=== PATIENT | female | born 1980 | race Hispanic/Latino ===

== ENCOUNTER 2017-04-16 14:02 | Emergency (ER) | payer BC ==
[2017-04-16 14:14] VITALS: RESP 18; TEMP 97.6; O2SAT 98
[2017-04-16] MEDS ORDERED: Lidocaine 2% Inj (20ml) INFIL ONE (14:43)
[2017-04-16] MEDS ORDERED: Bacitracin 500 Units/gm Oint Foilpak UD TOP ONE (14:43)
[2017-04-16] MEDS ORDERED: Lidocaine 2% Inj (20ml) ONE (14:46)
[2017-04-16] MEDS ORDERED: Bacitracin 500 Units/gm Oint Foilpak UD ONE (15:23)
--- NOTE | 2017-04-16 15:48 | C.PDOC ---
History Of Present Illness 04/16/2017 Xochitl Aquino is a 36 y/o female who presents to the ED complaining of a laceration on her fourth left finger. Patient reports she was cutting shrubs with hedge trimmers when she cut her 4th finger. Patient notes her Tetanus shot is not up to date. Patient denies weakness, numbness or other complaints. Time Seen by Provider: 04/16/17 14:18 Chief Complaint (Nursing): Abnormal Skin Integrity History Per: Patient History/Exam Limitations: no limitations Onset/Duration Of Symptoms: Hrs (prior to arrival) Current Symptoms Are (Timing): Still Present Location Of Injury: Left: Hand (4th finger laceration ) Past Medical History Reviewed: Historical Data, Nursing Documentation, Vital Signs Vital Signs: Last Vital Signs Temp 97.6 F 04/16/17 14:05 Pulse 72 04/16/17 15:59 Resp 18 04/16/17 15:59 BP 118/65 04/16/17 15:59 Pulse Ox 98 04/16/17 16:33 - Medical History PMH: No Chronic Diseases Family History: States: No Known Family Hx - Social History Hx Alcohol Use: No Hx Substance Use: No - Immunization History Hx Tetanus Toxoid Vaccination: No Hx Influenza Vaccination: No Hx Pneumococcal Vaccination: No Review Of Systems Except As Marked, All Systems Reviewed And Found Negative. Constitutional: Negative for: Fever Respiratory: Negative for: Shortness of Breath Gastrointestinal: Negative for: Vomiting Musculoskeletal: Positive for: Hand Pain (4th left finger laceration ) Neurological: Negative for: Headache Physical Exam - Physical Exam Appears: Well, Non-toxic, No Acute Distress Skin: Normal Color, Warm, Dry, Other (3cm c-shape distal on left 4th finger. Has full range of motion) Head: Atraumatic, Normacephalic Oral Mucosa: Moist Extremity: Normal ROM (left 4th finger), No Tenderness, Capillary Refill (less than 2 seconds), No Swelling Pulses: Left Radial: Normal, Right Radial: Normal Neurological/Psych: Oriented x3, Normal Speech, Normal Motor, Normal Sensation Gait: Steady ED Course And Treatment O2 Sat by Pulse Oximetry: 98 (room air) Pulse Ox Interpretation: Normal Procedure: Wound Repair - Time Out Time Out: Side verified, Site verified - Procedure Procedure: Wound Repair: 4th finger laceration - Consent Obtained Consent obtained: Verbal - Performed by Performed by: Mid-level Provider (Jaz) - Indications Indication(s):: Laceration - Location Location:: Left Shape:: Curvilinear - Anesthetic Technique Anesthetic Technique: Regional block (digital block using 2cc of lidocaine) Local/Regional Anesthetic:: Lidocaine 2% - Wound repair method Sutures:: # (8), Size (4-0), Type (ethilon), Technique (interrupted and skin glue used) - Patient tolerated procedure Patient Tolerated Procedure:: Well Medical Decision Making Medical Decision Makin04/16/2017 Plan: -- Bacitracin -- Lidocaine 2% -- Adacel -- Reassess and disposition The wound was cleansed with pressurized saline and betadine. 8 stitches placed by MASSIEL Sebastian. Discussed results and plan with patient. Patient understands results and is agreeable with plan. All questions answered. Disposition - Disposition Referrals: [facility], [facility], [facility] [Advanced Practice Nurse] - Disposition: HOME/ ROUTINE Disposition Time: 15:48 Condition: GOOD Additional Instructions: Keep the wound clean and dry. Wash twice a day with soap and water and then apply bacitracin. Sutures to be removed within 7-10 days. Return if worsened. Prescriptions: Bacitracin Ointment [Bacitracin] 30 gm TOP BID #1 tube Instructions: Finger Laceration (ED) Forms: [facility] (Frisian) - Clinical Impression Clinical Impression: Laceration of finger - Scribe Statement The provider has reviewed the documentation as recorded by the Scribe 04/16/2017 Scribe Attestation: Tomasa Michaels MD Scribe Attestation: All medical record entries made by the Scribe were at my direction and personally dictated by me. I have reviewed the chart and agree that the record accurately reflects my personal performance of the history, physical exam, medical decision making, and the department course for this patient. I have also personally directed, reviewed, and agree with the discharge instructions and disposition.
[2017-04-16 16:00] VITALS: BP 118/65; PULSE 72
== END 2017-04-16 16:03 | disposition home or self-care (01) ==
LOC: C.ER 14:02
DX: S61.215A Laceration without foreign body of left ring finger without damage to nail, initial encounter (principal); W27.8XXA Contact with other nonpowered hand tool, initial encounter; Z23 Encounter for immunization

== ENCOUNTER 2017-04-25 15:24 | Emergency (ER) | payer BC ==
[2017-04-25 15:39] VITALS: BMI 26.0
[2017-04-25 15:41] VITALS: BP 111/74; PULSE 80; RESP 18; TEMP 98.5; O2SAT 99
[2017-04-25] MEDS ORDERED: Lidocaine 1% Inj (20ml) ONE (16:06)
--- NOTE | 2017-04-25 16:25 | C.PDOC ---
History Of Present Illness 36 y/o female presents to ED for suture removal of left 4th finger. Sutures were placed on 04/16 and are healing well. No other complaints at this time. FOR SUTURE REMOVAL L 4TH FINGER. PLACED 04/16. HEALING WELL. EXAM SKIN SUTURES INTACT L 4TH FINGER NO S/S INFXN PROC PT UNABLE TO TOLERATE ALL SUTURE REMOVAL. PT REQUESTING DIGITAL BLOCK TO COMPLETE. LIDOCAIN 1% DIGITAL BLOCK PLACED. SUTURES REMOVED W 11 BLADE Time Seen by Provider: 04/25/17 15:57 Chief Complaint (Nursing): Wound Check History Per: Patient History/Exam Limitations: no limitations Onset/Duration Of Symptoms: Days Ago Current Symptoms Are (Timing): Still Present Location Of Injury: Left: Hand Past Medical History Reviewed: Historical Data, Nursing Documentation, Vital Signs Vital Signs: Last Vital Signs Temp 98.5 F 04/25/17 15:38 Pulse 80 04/25/17 15:38 Resp 18 04/25/17 15:38 BP 111/74 04/25/17 15:38 Pulse Ox 99 04/25/17 16:28 - Medical History PMH: No Chronic Diseases Surgical History: No Surg Hx Family History: States: No Known Family Hx - Social History Hx Alcohol Use: No Hx Substance Use: No - Immunization History Hx Tetanus Toxoid Vaccination: No Hx Influenza Vaccination: No Hx Pneumococcal Vaccination: No Review Of Systems Except As Marked, All Systems Reviewed And Found Negative. Constitutional: Negative for: Fever, Chills Skin: Negative for: Rash Neurological: Negative for: Weakness, Numbness Physical Exam - Physical Exam Appears: Non-toxic, No Acute Distress Skin: Warm, Dry, Other (Sutures intact to left 4th finger. No signs of infection ) Head: Atraumatic, Normacephalic Eye(s): bilateral: Normal Inspection Oral Mucosa: Moist Neck: Normal ROM, Supple Chest: Symmetrical Extremity: Normal ROM, Capillary Refill (<2 seconds), No Deformity, No Swelling Pulses: Left Radial: Normal, Right Radial: Normal Neurological/Psych: Oriented x3, Normal Motor, Normal Sensation ED Course And Treatment O2 Sat by Pulse Oximetry: 99 (RA) Pulse Ox Interpretation: Normal Procedure: Wound Repair - Time Performed Time Performed: 16:26 - Time Out Time Out: Side verified, Site verified, Patient ID confirmed - Procedure Procedure: Wound Repair: SUTURE REMOVAL - Consent Obtained Consent obtained: Verbal - Performed by Performed by: Attending Physician - Indications Indication(s):: Other (SUTURE REMOVAL) - Location Finger:: Left, Ring - Anesthetic Technique Anesthetic Technique: Local (DIGITAL BLOCK) Local/Regional Anesthetic:: Lidocaine 1% - Patient tolerated procedure Patient Tolerated Procedure:: Well (NO LACERATION REPAIR; DIGITAL BLOCK ONLY FOR SUTURE REMOVAL) Disposition Counseled Patient/Family Regarding: Diagnosis, Need For Followup - Disposition Referrals: Ron Stahl MD [Staff Provider] - Disposition: HOME/ ROUTINE Disposition Time: 16:25 Condition: IMPROVED Instructions: Chronic Wound Care (ED) Forms: [facility] (Danish) - Clinical Impression Clinical Impression: Visit for suture removal - Scribe Statement The provider has reviewed the documentation as recorded by the Scribtonya Wolfe All medical record entries made by the Scribe were at my direction and personally dictated by me. I have reviewed the chart and agree that the record accurately reflects my personal performance of the history, physical exam, medical decision making, and the department course for this patient. I have also personally directed, reviewed, and agree with the discharge instructions and disposition. Orthopedic Care Application Of:: Finger Splint
[2017-04-25] MEDS ORDERED: Bacitracin 500 Units/gm Oint Foilpak UD ONE (16:34)
== END 2017-04-25 16:41 | disposition home or self-care (01) ==
LOC: C.ER 15:24
DX: Z48.02 Encounter for removal of sutures (principal)

== ENCOUNTER 2018-02-28 03:30 | Emergency (ER) | payer BC ==
[2018-02-28 03:31] VITALS: BMI 26.0
[2018-02-28] MEDS ORDERED: DiphenhydrAMINE 50 mg/ml Inj IVP STA (03:48)
--- NOTE | 2018-02-28 03:48 | C.PDOC ---
History Of Present Illness Patient presents to the ER stating she ate upper sorbian food 3-4 hours ago and now woke up with swollen eyes, hives on her back, and an itchy throat. She took benadryl and zyrtec [employer]. Patient is currently speaking in complete sentences. Denies fever, chills, difficulty breathing, or difficulty swallowing. Time Seen by Provider: 02/28/18 03:48 Chief Complaint (Nursing): Allergic Reaction History Per: Patient History/Exam Limitations: no limitations Onset/Duration Of Symptoms: Hrs Current Symptoms Are (Timing): Still Present Context: Food Possible Cause: Food Associated Symptoms: Skin Rash, Swelling, Itching Home/EMS Treatment: Benadryl, Other (Zyrtec) Severity: Moderate Pain Scale Rating Of: 4 Recent travel outside of the [place]: No Past Medical History Reviewed: Historical Data, Nursing Documentation, Vital Signs Vital Signs: Last Vital Signs Temp 98.4 F 02/28/18 04:00 Pulse 73 02/28/18 06:26 Resp 20 02/28/18 06:26 BP 103/62 02/28/18 06:26 Pulse Ox 97 02/28/18 06:26 Family History: States: No Known Family Hx - Social History Hx Alcohol Use: No Hx Substance Use: No - Immunization History Hx Tetanus Toxoid Vaccination: No Hx Influenza Vaccination: No Hx Pneumococcal Vaccination: No Review Of Systems Constitutional: Negative for: Fever, Chills Eyes: Positive for: Other (Eyelid swelling) ENT: Positive for: Other (Itchy throat). Negative for: Mouth Swelling, Throat Swelling Respiratory: Negative for: Shortness of Breath Skin: Positive for: Rash Physical Exam - Physical Exam Appears: Non-toxic Skin: Warm, Dry, Rash (Generalized hives) Head: Normacephalic Eye(s): bilateral: Normal Inspection Oral Mucosa: Moist Throat: No Erythema, No Exudate, No Drooling, No Other (edematous uvula) Neck: Trachea Midline, Supple Chest: Symmetrical, No Tenderness Cardiovascular: Rhythm Regular Respiratory: No Rales, No Rhonchi, Wheezing (Scattered) Gastrointestinal/Abdominal: Soft, No Tenderness Neurological/Psych: Oriented x3 ED Course And Treatment Progress Note: Benadryl, pepcid, IV fluids, and solumedrol administered. Critical Care Time - Critical Care Note Total Time (in mins): 30 Documented critical care: time excludes all time spent performing seperately billable procedures. Medical Decision Making Medical Decision Making: Upon provider reevaluation patient is feeling better, is medically stable, and requires no further treatment in the ED at this time. Patient will be discharged home with Rx for prednisone and epipen . Counseling was provided and all questions were answered regarding diagnosis and need for follow up with the referred clinic. There is agreement to discharge plan. Return if symptoms persist or worsen. Disposition Counseled Patient/Family Regarding: Studies Performed, Diagnosis, Need For Followup, Rx Given - Disposition Referrals: [facility] [Outside] [facility] [Outside] Disposition: HOME/ ROUTINE Disposition Time: 03:48 Condition: FAIR Additional Instructions: Please return if symptoms recur. Also use benadryl, pepcid and zyrtec Prescriptions: Epinephrine [Epipen] 0.3 mg IJ ONCE PRN #2 auto.injct PRN Reason: Anaphylaxis Prednisone [Deltasone] 20 mg PO DAILY #5 tablet Instructions: Food Allergy, Hives (DC) Forms: [facility] (Malawian) - Clinical Impression Clinical Impression: Allergic reaction - Scribe Statement The provider has reviewed the documentation as recorded by the Scribe Sreekanth Dang All medical record entries made by the Scribe were at my direction and personally dictated by me. I have reviewed the chart and agree that the record accurately reflects my personal performance of the history, physical exam, medical decision making, and the department course for this patient. I have also personally directed, reviewed, and agree with the discharge instructions and disposition.
[2018-02-28] MEDS ORDERED: Sodium Chloride 0.9% 1,000 ML IV ONE (03:49)
[2018-02-28] MEDS ORDERED: DiphenhydrAMINE 50 mg/ml Inj ONE (04:05)
[2018-02-28 05:17] VITALS: RESP 20; TEMP 98.4
[2018-02-28 06:27] VITALS: BP 103/62; PULSE 73; O2SAT 97
== END 2018-02-28 06:42 | disposition home or self-care (01) ==
LOC: C.ER 03:30
DX: T78.40XA Allergy, unspecified, initial encounter (principal)
CPT/HCPCS: 96374; 96375; 99283; J1200; J2930; J7030